=== PATIENT | female | born 1980 | race Two or more races ===

== ENCOUNTER 2017-07-14 05:43 | Inpatient (IN) | payer OTHER ==
[~2017-07-14] VITALS: Ht 167.6 cm; Wt 65.3 kg
[2017-07-14] MEDS ORDERED: PRENATAL TABLE1 EAC2 PO (08:54)
[2017-07-14] MEDS ORDERED: IRON325 MG PO (08:55)
[2017-07-14] MEDS ORDERED: SYNTHROID112 MCG PO (08:55)
== END 2017-07-16 10:49 | DRG 775 ==
LOC: OB/GYN 05:43 → LDR 05:43 → OB/GYN 15:01
PROC: 0HQ9XZZ Repair Perineum Skin, External Approach (ICD-10-PCS; principal; 2017-07-14)
PROC: 10E0XZZ Delivery of Products of Conception, External Approach (ICD-10-PCS; 2017-07-14)
PROC: 4A1HXCZ Monitoring of Products of Conception, Cardiac Rate, External Approach (ICD-10-PCS; 2017-07-14)
PROC: 4A033R1 Measurement of Arterial Saturation, Peripheral, Percutaneous Approach (ICD-10-PCS; 2017-07-14)
DX: O70.0 First degree perineal laceration during delivery (principal); O69.89X0 Labor and delivery complicated by other cord complications, not applicable or unspecified; O99.283 Endocrine, nutritional and metabolic diseases complicating pregnancy, third trimester; E03.8 Other specified hypothyroidism; Z3A.39 39 weeks gestation of pregnancy; Z37.0 Single live birth